=== PATIENT | female | born 1985 | race Caucasian/White ===

== ENCOUNTER 2019-09-11 20:16 | Emergency (ER) | payer OTHER, MEDICAID, SELFPAY ==
[2019-09-11 20:20] VITALS: BP 192/103; PULSE 91; RESP 20; TEMP 37.2; O2SAT 99; BMI 32.4
--- NOTE | 2019-09-11 20:39 | ED.EXTPRO ---
HPI - Extremity Problem General Chief complaint: Extremity Problem,Nontraumatic Stated complaint: RIGHT ANKLE SWELLING RASH BLISTERS Time Seen by Provider: 09/11/19 20:20 Source: patient Mode of arrival: Ambulatory Limitations: no limitations History of Present Illness HPI Narrative: 34-year-old female nonsmoker with noncontributory medical history presents with her and a chief complaint of a few days of gradually worsening redness, pain, itching and even some blistering to her lower extremities near her ankles. She states that she was working in a garden and the symptoms happened soon thereafter. She denies any obvious bites or stings. She denies any history of the same. She denies any difficulty with swallowing or breathing. She has no tongue, lip or throat swelling. She had been taking some Benadryl and anti-inflammatories with minimal to no relief. She denies fever, chills or other MD Complaint: extremity swelling Location: left, right and lower extremity Quality: burning Radiation: none Exacerbating factors: nothing Associated symptoms: denies other symptoms Related Data Previous Rx's Medication Instructions Recorded doxycycline hyclate 100 mg PO BID #20 tab 09/11/19 prednisone 40 mg PO DAILY #5 tab 09/11/19 Allergies Allergy/AdvReac Type Severity Reaction Status Date / Time No Known Drug Allergies Allergy Verified 09/11/19 20:20 Review of Systems Constitutional Constitutional: Denies chills, Denies fatigue, Denies fever(s), Denies frequent falls, Denies lethargy and Denies weakness Eyes Eyes: Denies change in vision, Denies eye discharge, Denies irritation and Denies loss of vision ENT Ears, Nose, Mouth, and Throat: Denies change in voice, Denies dizziness, Denies neck pain, Denies sore throat and Denies throat swelling Cardiovascular Cardiovascular: Denies chest pain, Denies irregular heart rhythm, Denies lightheadedness, Denies palpitations, Denies dyspnea, Denies dyspnea on exertion and Denies orthopnea Respiratory Respiratory: Denies cough, Denies dyspnea, Denies dyspnea on exertion and Denies wheezing Gastrointestinal Gastrointestinal: Denies abdominal pain, Denies change in bowel habits, Denies diarrhea, Denies nausea and Denies vomiting Musculoskeletal Musculoskeletal: Denies neck pain and Denies numbness Integumentary/Breasts Skin/Breast: Reports pruritus, Reports erythema, Reports rash, Reports skin pain, Reports skin swelling and Denies wounds Neurologic Neurologic: Denies behavioral changes, Denies confusion, Denies dizziness, Denies frequent falls, Denies loss of vision, Denies numbness and Denies weakness Psychiatric Psychiatric: Denies anxiety, Denies behavioral changes, Denies confusion, Denies depression, Denies homicidal ideation and Denies suicidal ideation Endocrine Endocrine: Denies fatigue, Denies flushing and Denies palpitations Hematologic/Lymphatic Hematologic/Lymphatic: Denies easy bruising Allergic/Immunologic Allergic/Immunologic: Denies urticaria, Denies throat swelling and Denies wheezing Patient History Social History Smoking Status: Never smoker Smoking Status: Never smoker Substance Use Type: does not use Exam Narrative Exam Narrative: GENERAL: [34] year old patient appears stated age. Well-nourished, well-developed patient, in mild distress. HEAD: Atraumatic. Normocephalic. EYES: Pupils equal round and reactive. Extraocular motions intact. No scleral icterus. No injection or drainage. ENT: No tongue, lip or throat swelling Nose without bleeding, purulent drainage. Throat without erythema, tonsillar hypertrophy or exudate. Airway patent. NECK: Trachea midline. Non tender CARDIOVASCULAR: Regular rate and rhythm without murmurs, gallops, or rubs. RESPIRATORY: Clear to auscultation. Breath sounds equal bilaterally. No wheezes, rales, or rhonchi. GASTROINTESTINAL: Abdomen soft, non-tender, nondistended. EXTREMITIES: No edema or joint tenderness. BACK: Nontender without deformity or crepitance. No flank tenderness. NEURO: AOx3. SKIN: Few lower extremity patches of well demarcated erythematous skin the largest approximately 2-3 cm across. No induration or fluctuance. Very minimal surrounding and erythema, no lymphangitis. On right lateral foot there are is the most impressive of these patches and has an intact clear fluid-filled blister. Otherwise No rash or erythema of visible areas Initial Vital Signs Initial Vital Signs: Vital Signs Temperature 98.9 F 09/11/19 20:20 Pulse Rate 91 H 09/11/19 20:20 Respiratory Rate 20 09/11/19 20:20 Blood Pressure 192/103 H 09/11/19 20:20 Pulse Oximetry 99 09/11/19 20:20 Course Orders Ordered: ED Orders 09/11/19 21:00 Wound Culture and Gram Stain Stat Discontinued Medications Doxycycline Hyclate (Vibramycin) 100 mg PO NOW ONE Stop: 09/11/19 21:00 Last Admin: 09/11/19 21:06 Dose: 100 mg Documented by: TONI Prednisone (Deltasone) 40 mg PO NOW ONE Stop: 09/11/19 21:00 Last Admin: 09/11/19 21:06 Dose: 40 mg Documented by: TONI Vital Signs Vital signs: Vital Signs - 8 hr 09/11/19 20:20 09/11/19 21:09 Temperature 98.9 F Pulse Rate 91 H 86 Respiratory Rate 20 18 Blood Pressure 192/103 H 184/115 H Pulse Oximetry 99 98 MDM - Extremity (Nontraumatic) MDM Narrative Medical decision making narrative: These patches are well demarcated and rather spread out and isolated to her very low extremities. There are not linear in arrangement and distribution is not consistent with classic contact or roots dermatitis. This raises the suspicion of a possible reaction to some type of bite or sting. There is some minimal surrounding erythema of the lesions on her right lower extremity which makes me question whether not there may be an early bacterial superinfection hence the decision to use antibiotics. Patient has been given return precautions and had her questions answered to her apparent satisfaction. Discharge Plan Departure Patient Disposition: Home Clinical Impression: Allergic reaction Qualifiers: Encounter type: initial encounter Qualified Code(s): T78.40XA - Allergy, unspecified, initial encounter Cellulitis Qualifiers: Site of cellulitis: extremity Site of cellulitis of extremity: lower extremity Laterality: right Qualified Code(s): L03.115 - Cellulitis of right lower limb Discharge Date/Time: 09/11/19 21:27 Instructions: DI for Cellulitis -- Adult, DI for Insect Bites and Stings Activity Restrictions/Additional Instructions: *You have been diagnosed with [lower extremity localized allergic reaction with a likely bacterial superinfection] *What to do: *Take medications as directed: [facility] your request *Follow up with your primary care provider in 2-3 days, call for an appointment. Let them know you were seen in the Emergency Department and that we ask that you be seen in follow up *Return to ER if you should have any new, worsening or concerning symptoms Prescriptions: New prednisone 20 mg tablet 40 mg PO DAILY Qty: 5 RF: 0 doxycycline hyclate 100 mg tablet 100 mg PO BID Qty: 20 RF: 0
[2019-09-11] MEDS: predniSONE 20 MG TABLET 40 MG PO (21:06)
[2019-09-11] MEDS: DOXYCYCLINE HYCLATE 100 MG TABLET PO (21:06)
[2019-09-11 21:09] VITALS: BP 184/115; PULSE 86; RESP 18; O2SAT 98
--- NOTE | 2019-09-11 21:17 | PC.NURSE ---
Pt has multiple rashes on back of bilateral ankles, has blister [id number] on back of right ankle. reports area is itchy and painful. Blister is draining serous drainage.
== END 2019-09-11 21:27 | disposition home or self-care (01) ==
PROVIDERS: Emergency Provider Emergency Medicine
DX: T78.40XA Allergy, unspecified, initial encounter (principal); L03.115 Cellulitis of right lower limb
CPT/HCPCS: 87070; 87075; 87205; 99283